=== PATIENT | female | born 1980 | race Caucasian/White ===

== ENCOUNTER → 2017-02-11 | Outpatient (CLI) | payer OTHER ==
--- NOTE | 2017-02-11 11:36 | XR ---
EXAMINATION TYPE: XR knee limited bilateral DATE OF EXAM: 02/11/2017 COMPARISON: NONE HISTORY: Bilateral knee pain, clicking TECHNIQUE: 2 view knee bilaterally FINDINGS: No joint effusions are evident. Small posterior superior patellar spur is present on the le ft. Joint spaces are preserved. IMPRESSION: 1. Minimal degenerative change within the left knee
== END | disposition home or self-care (01) ==
LOC: RADXRMAIN 10:48
PROVIDERS: ATTEND Family Medicine
DX: M25.862 Other specified joint disorders, left knee (principal); M25.562 Pain in left knee; M25.561 Pain in right knee

== ENCOUNTER → 2020-03-03 | Outpatient (CLI) | payer OTHER | END | disposition home or self-care (01) | LOC: LABWHC1 12:26 | PROVIDERS: ATTEND Obstetrics & Gynecology | DX: Z20.828 Contact with and (suspected) exposure to other viral communicable diseases (principal); J02.8 Acute pharyngitis due to other specified organisms; B97.89 Other viral agents as the cause of diseases classified elsewhere; R05 Cough; R09.81 Nasal congestion | CPT/HCPCS: U0003; C9803 ==